=== PATIENT | female | born 1965 | race Caucasian/White ===

== ENCOUNTER 2017-08-03 11:05 | Day surgery (SDC) | payer OTHER ==
[~2017-08-03 11:05] MED LIST: CEFAZOLIN 1 GM INJ
[2017-08-03] MEDS ORDERED: ONDANSETRON 4 MG INJ (13:12)
[2017-08-03] MEDS ORDERED: ROCURONIUM 50 MG INJ (13:12)
[2017-08-03] MEDS ORDERED: ROPIVACAINE 0.5 % 30 ML VIAL (13:12)
[2017-08-03] MEDS ORDERED: MIDAZOLAM 1 MG/ML 2 ML INJ (13:12)
[2017-08-03] MEDS ORDERED: PROPOFOL 20 ML (13:12)
[2017-08-03] MEDS ORDERED: METOCLOPRAMIDE 10 MG INJ (13:13)
[2017-08-03] MEDS ORDERED: HYDROmorphONE 2 MG/ML SYG (13:58)
[2017-08-03] MEDS ORDERED: KETOROLAC 30 MG INJ (14:31)
[2017-08-03] MEDS ORDERED: NEOSTIGMINE 3 MG/3 ML SYRINGE ×2 (14:31→14:56)
[2017-08-03] MEDS ORDERED: HYDROCODONE/APAP (5/325) TAB PO ×2 (15:00)
[2017-08-03] MEDS: BUPIVACAINE 0.5%/EPI (SDV) 30 ML INJ (15:00)
[2017-08-03] MEDS ORDERED: BISACODYL 10 MG SUPP PR (15:00)
[2017-08-03] MEDS ORDERED: DOCUSATE SODIUM 100 MG CAP PO (15:00)
[2017-08-03] MEDS ORDERED: HYDROmorphONE (0.2 MG/ML) 10ML SYG IV ×3 (15:29→15:30)
[2017-08-03] MEDS ORDERED: FENTAnyl 50 MCG/ML VIAL IV ×3 (15:30)
[2017-08-03] MEDS: HYDROmorphONE (0.2 MG/ML) 10ML SYG IV ×2 (15:32→15:36)
[2017-08-03] MEDS: ONDANSETRON 4 MG INJ IV (18:21)
== END 2017-08-03 18:57 | disposition home or self-care (01) ==
LOC: SDS 11:05
DX: K80.20 Calculus of gallbladder without cholecystitis without obstruction (principal)
CPT/HCPCS: 47379; 84703; 88304; 88307; 88313

== ENCOUNTER 2017-08-19 14:51 | Outpatient (CLI) | payer OTHER | END 2017-08-19 17:00 | disposition home or self-care (01) | LOC: HPC 14:51 | DX: Z09 Encounter for follow-up examination after completed treatment for conditions other than malignant neoplasm (principal); K80.10 Calculus of gallbladder with chronic cholecystitis without obstruction; K76.0 Fatty (change of) liver, not elsewhere classified | CPT/HCPCS: Z7500 ==